=== PATIENT | female | born 1980 | race Hispanic/Latino ===

== ENCOUNTER → 2023-08-31 | Day surgery (SDC) | payer OTHER ==
[2023-08-28 15:40] LABS: BASOPHILS # (AUTO) 0.1 (0.0-0.1); BASOPHILS % 0.6 % (0.0-1.0); EOSINOPHILS # (AUTO) 0.1 (0.0-0.4); EOSINOPHILS % 1.2 % (0.0-6.0); HEMATOCRIT 44.3 % (34.2-44.1); HEMOGLOBIN 15.3 g/dL (12.0-16.0); LYMPHOCYTES # (AUTO) 2.2 (1.0-3.2); LYMPHOCYTES % 27.7 % (18.0-39.1); MEAN CORPUSCULAR HEMOGLOBIN 31.6 pg (28-32); MEAN CORPUSCULAR HGB CONC 34.5 g/dL (31-35); MEAN CORPUSCULAR VOLUME 91.5 fL (81-99); MONOCYTES # (AUTO) 0.6 (0.2-0.8); MONOCYTES % 7.6 % (4.4-11.3); NEUTROPHILS % 62.7 % (38.7-80.0); PLATELET COUNT 180 x10e3/uL (140-360); RED BLOOD COUNT 4.84 x10e6/uL (3.6-5.1); RED CELL DISTRIBUTION WIDTH 12.7 % (11.7-14.4); WHITE BLOOD COUNT 8.02 x10e3/uL (4.8-10.8)
[2023-08-28 15:55] LABS: CALCIUM 9.8 mg/dL (8.4-10.2); CREATININE, SERUM 0.85 mg/dL (0.57-1.11)
[~2023-08-31] MED LIST: ACETAMINOPHEN 1000 MG/100 ML 100 ML IV ONE; FENTANYL CITRATE/PF 100MCG/2 ML INJ ONE; GEMTESA75 MG PO; IOPAMIDOL 610MG/1ML 300 MG/ML VIAL IV ONE; KETOROLAC TROME10 MG PO; LIDOCAINE HCL 2% LOCAL INJ 5 ML SDV VIAL INJ ONE; PHENAZOPYRIDINE HCL 100 MG TAB ONE; PROPOFOL IV EMULSION 10 MG/ML 20 ML VIAL ONE
[2023-08-31] MEDS: LACTATED RINGER'S 1,000 ML ONE (11:52)
[2023-08-31] MEDS: GENTAMICIN 80MG/NS 100 ML 200 ML IV ONE (11:53)
[2023-08-31 15:04] VITALS: TEMP 98
[2023-08-31] MEDS: PHENAZOPYRIDINE HCL 100 MG TAB PO ONE (15:58)
[2023-08-31 16:05] VITALS: BP 102/59; PULSE 77; RESP 12; O2SAT 100
== END | disposition home or self-care (01) ==
LOC: OR 11:28
PROVIDERS: ATTEND Urology
DX: N20.0 Calculus of kidney (principal); Z46.6 Encounter for fitting and adjustment of urinary device; N28.89 Other specified disorders of kidney and ureter; N13.30 Unspecified hydronephrosis; N32.81 Overactive bladder; N81.89 Other female genital prolapse; N81.6 Rectocele; R80.9 Proteinuria, unspecified; N36.41 Hypermobility of urethra; Z88.2 Allergy status to sulfonamides; Z01.812 Encounter for preprocedural laboratory examination; Z01.818 Encounter for other preprocedural examination; Z79.899 Other long term (current) drug therapy
CPT/HCPCS: 36415; 52351; 74018; 74420; 80048; 85025; 87086; 87186; C1769; J0131; J1580; J2001; J2704; J3010; J7121; Q9967

== ENCOUNTER 2024-01-05 22:24 | Observation (INO) | payer OTHER ==
[~2024-01-05] VITALS: Ht 162.6 cm; Wt 58.1 kg
[~2024-01-05 22:24] MED LIST changes: -ACETAMINOPHEN 1000 MG/100 ML 100 ML IV ONE; -FENTANYL CITRATE/PF 100MCG/2 ML INJ ONE; -IOPAMIDOL 610MG/1ML 300 MG/ML VIAL IV ONE; -LIDOCAINE HCL 2% LOCAL INJ 5 ML SDV VIAL INJ ONE; -PHENAZOPYRIDINE HCL 100 MG TAB ONE; -PROPOFOL IV EMULSION 10 MG/ML 20 ML VIAL ONE
[2024-01-05 22:30] VITALS: PULSE 75; RESP 18; TEMP 98
[2024-01-05 23:12] LABS: BASOPHILS # (AUTO) 0.1 (0.0-0.1); BASOPHILS % 0.6 % (0.0-1.0); EOSINOPHILS # (AUTO) 0.1 (0.0-0.4); EOSINOPHILS % 1.3 % (0.0-6.0); HEMATOCRIT 40.1 % (34.2-44.1); HEMOGLOBIN 13.4 g/dL (12.0-16.0); LYMPHOCYTES # (AUTO) 2.9 (1.0-3.2); LYMPHOCYTES % 33.9 % (18.0-39.1); MEAN CORPUSCULAR HEMOGLOBIN 31.2 pg (28-32); MEAN CORPUSCULAR HGB CONC 33.4 g/dL (31-35); MEAN CORPUSCULAR VOLUME 93.5 fL (81-99); MONOCYTES # (AUTO) 0.7 (0.2-0.8); MONOCYTES % 7.9 % (4.4-11.3); NEUTROPHILS # (AUTO) 4.8 (2.1-6.9); NEUTROPHILS % 56.2 % (38.7-80.0); PLATELET COUNT 230 x10e3/uL (140-360); RED BLOOD COUNT 4.29 x10e6/uL (3.6-5.1); RED CELL DISTRIBUTION WIDTH 12.6 % (11.7-14.4)
[2024-01-05] MEDS: SODIUM CHLORIDE 0.9% 1000ML 1,000 ML IV ONE (23:20)
[2024-01-05] MEDS: KETOROLAC TROMETHAMINE 30 MG/ML VIAL IV STA (23:21)
[2024-01-05] MEDS: ONDANSETRON HCL INJ 2MG/ML 2ML 2 MG/ML VIAL IV STA (23:21)
[2024-01-05 23:23] LABS: ANION GAP 12.5 mmol/L (8-16); CALCIUM 9.4 mg/dL (8.4-10.2); CREATININE, SERUM 1.25 mg/dL (0.57-1.11); POTASSIUM 3.5 mmol/L (3.5-5.1)
[2024-01-05 23:26] LABS: BILIRUBIN,URINE NEGATIVE (NEGATIVE); CLARITY,URINE CLEAR (CLEAR); COLOR,URINE YELLOW (YELLOW); GLUCOSE, URINE NEGATIVE (NEGATIVE); KETONES,URINE NEGATIVE (NEGATIVE); LEUKOCYTE ESTERASE ,URINE NEGATIVE (NEGATIVE); NITRITE,URINE NEGATIVE (NEGATIVE); PH,URINE 5.5 (5 - 7); PROTEIN,URINE DIPSTICK NEGATIVE (NEGATIVE); URINE UROBILINOGEN 0.2 mg/dL (0.2 - 1)
[2024-01-05 23:51] LABS: BACTERIA,URINE MODERATE /HPF; EPITHELIAL CELLS,URINE MODERATE /LPF; RBC,URINE 0-5 /HPF (0-5); WBC,URINE (MAN) 0-5 /HPF (0-5)
[2024-01-06] VITALS (8 sets, daily range): BP systolic 94–104; BP diastolic 47–64; PULSE 48–62; RESP 18–20; TEMP 97.6–97.9; O2SAT 96–100
[2024-01-06] MEDS: SODIUM CHLORIDE 0.9% 1000ML 1,000 ML IV ONE (01:07)
[2024-01-06] MEDS: SODIUM CHLORIDE 0.9% 1000ML 1,000 ML IV SCH (01:25)
[2024-01-06] MEDS ORDERED: ACETAMINOPHEN 325 MG TAB PO PRN (08:45)
[2024-01-06] MEDS ORDERED: KETOROLAC TROMETHAMINE 30 MG/ML VIAL IV PRN (08:45)
[2024-01-06] MEDS: ONDANSETRON HCL INJ 2MG/ML 2ML 2 MG/ML VIAL IV PRN (08:56)
[2024-01-06] MEDS: Morphine 2mg Syringe 2 MG/ML SYR IV PRN (08:59)
[2024-01-07] VITALS: BP 95/58; PULSE 53; RESP 20; TEMP 97.8; O2SAT 100
[2024-01-07 04:00] VITALS: BP 92/60; PULSE 51; RESP 20; TEMP 97.9; O2SAT 100
[2024-01-07 05:47] LABS: BASOPHILS % 0.6 % (0.0-1.0); EOSINOPHILS # (AUTO) 0.1 (0.0-0.4); EOSINOPHILS % 2.4 % (0.0-6.0); HEMATOCRIT 39.4 % (34.2-44.1); HEMOGLOBIN 12.6 g/dL (12.0-16.0); LYMPHOCYTES # (AUTO) 1.9 (1.0-3.2); MEAN CORPUSCULAR HEMOGLOBIN 30.7 pg (28-32); MEAN CORPUSCULAR VOLUME 95.9 fL (81-99); MONOCYTES # (AUTO) 0.5 (0.2-0.8); MONOCYTES % 9.2 % (4.4-11.3); NEUTROPHILS # (AUTO) 2.7 (2.1-6.9); NEUTROPHILS % 51.4 % (38.7-80.0); PLATELET COUNT 200 x10e3/uL (140-360); RED BLOOD COUNT 4.11 x10e6/uL (3.6-5.1); RED CELL DISTRIBUTION WIDTH 12.4 % (11.7-14.4); WHITE BLOOD COUNT 5.33 x10e3/uL (4.8-10.8)
[2024-01-07 06:25] LABS: ANION GAP 9.2 mmol/L (8-16); CALCIUM 8.4 mg/dL (8.4-10.2); CREATININE, SERUM 0.88 mg/dL (0.57-1.11); POTASSIUM 4.2 mmol/L (3.5-5.1)
[2024-01-07 08:13] VITALS: BP 98/56; PULSE 50; RESP 19; TEMP 98.1; O2SAT 97
== END 2024-01-07 11:45 | disposition home or self-care (01) ==
LOC: ER 22:46 → INTOOBSV 01-06 01:11 → ERHOLD 01-06 01:11 → MED/SURG3 01-06 02:00
PROVIDERS: ADMIT Internal Medicine; ATTEND Internal Medicine
DX: N13.6 Pyonephrosis (principal); R31.29 Other microscopic hematuria; N17.9 Acute kidney failure, unspecified; G62.9 Polyneuropathy, unspecified; Z11.52 Encounter for screening for COVID-19
CPT/HCPCS: 36415 ×2; 74176; 80048 ×2; 81001; 85025 ×2; 87086; 99284; G0378 ×2; J0696 ×2; J1885; J2270; J2405 ×2; J7030 ×3; U0002